=== PATIENT | male | born 1995 | race Caucasian/White ===

== ENCOUNTER 2019-04-20 11:51 | Observation (INO) ==
[2019-04-20] MEDS ORDERED: MoRPHine SULFATE 4 MG/ML 1 ML CARP\\VIAL IV STA (12:09)
[2019-04-20] MEDS ORDERED: ONDANSETRON INJ 2 MG/ML 2 ML VIAL IV STA (12:09)
[2019-04-20] MEDS ORDERED: SODIUM CHLORIDE 0.9% 1000ML 1,000 ML IV SCH (12:15)
[2019-04-20 12:25] LABS: Basophils # (auto) 0.02 K/uL (0-0.2); Basophils % (auto) 0.1 %; Hematocrit (blood only) 41.3 % (42-52); Hemoglobin 15.3 g/dL (14.0-18.0); Immature Granulocytes # (auto) 0.04 K/uL (0.00-0.02); Immature Granulocytes % (auto) 0.3 %; Lymphocytes # (auto) 0.62 K/uL (1.2-3.4); Lymphocytes % (auto) 4.4 %; Mean Corpuscular Volume 84.5 fL (80-100); Mean Platelet Volume 9.5 fL (7.4-10.4); Monocytes # (auto) 0.66 K/uL (0.11-0.59); Monocytes % (auto) 4.7 %; Neutrophils # (auto) 12.83 K/uL (1.4-6.5); Neutrophils % (auto) 90.5 %; Platelet Count 217 K/uL (130-400); RDW Coefficient of Variation 11.9 % (11.5-14.5); RDW Standard Deviation 36.5 fL (36.4-46.3); Red Blood Count 4.89 M/uL (4.7-6.1); White Blood Count 14.17 K/uL (4.8-10.8)
[2019-04-20 12:41] LABS: Albumin Level 4.3 gm/dl (3.4-5.0); BUN Creatinine Ratio 17.2 (10-20); Calcium 9.5 mg/dl (8.5-10.1); Creatinine Clr Calc Pharmacy 120.1 ml/min; Est GFR (African American) 111.1; Est GFR (Non-African American) 95.8
[2019-04-20 12:44] LABS: Albumin Globulin Ratio 1.2 (0.9-2); Bilirubin,Total 0.5 mg/dl (0.2-1); Globulin 3.6 gm/dl (2.5-4.0); Total Protein 7.9 gm/dl (6.4-8.2)
[2019-04-20 12:50] LABS: Appearance Urine Turbid (Clear); Bacteria Urine Automated Negative (Negative); Bilirubin Urine Negative (Negative); Blood Urine Trace (Negative); Color Urine Yellow; Epithelial Cell Urine Auto 0-5 /lpf (0-5); Glucose Urine UA Negative (Negative); Ketones Urine Trace (Negative); Leukocyte Esterase Urine Negative (Negative); Nitrite Urine Negative (Negative); Protein Urine Trace (Negative); Specific Gravity Urine 1.032 (1.000-1.030); Urobilinogen Urine Negative (Negative); WBC Urine Automated 0 /hpf (0-5)
[2019-04-20] MEDS ORDERED: IOVERSOL 100ml IV PRN (14:48)
--- NOTE | 2019-04-20 15:05 | CT Scan Report ---
CT abd pelvis oral and IV con CLINICAL HISTORY: Right lower quadrant abdominal pain COMPARISON STUDY: None. TECHNIQUE: The patient was scanned finding administration of dilute oral contrast, and in a dynamic h elical fashion during intravenous administration of 93 cc of Optiray 320. A dose lowering technique was utilized adhering to the principles of ALARA. CT DOSE: 397.64 mGy.cm FINDINGS: Lower chest: The heart is normal in size and configuration, without pericardial effusion. The lung ba ses and pleural spaces are clear. Liver: The contrast-enhanced liver is normal in size, contour, and attenuation. There is no intrahepa tic biliary ductal dilatation. The hepatic veins and portal veins are patent. Gallbladder: Unremarkable. Spleen: Normal in size and attenuation. Pancreas: Unremarkable. Adrenal glands: Unremarkable. Kidneys: There is an 18 mm left renal cyst. There is no hydronephrosis. Bowel: There are no transition zones indicate bowel obstruction. There are no findings to indicate ac [place] diverticulitis. There is a mildly dilated fluid-filled appendix which is not opacified with contr ast. The appendix measures 9 mm in maximal diameter. There is very subtle periappendiceal edema near the appendiceal base. In the setting of right lower quadrant abdominal pain, the findings are suggest gwen of an early acute appendicitis. Peritoneum: There is a small amount of free pelvic fluid. No free air is visualized. Vasculature: The abdominal aorta is normal in course and caliber. Adenopathy: None. Pelvic viscera: The bladder, and pelvic viscera are unremarkable. Skeletal structures: No destructive osseous lesions are seen. IMPRESSION: 1. No evidence of bowel obstruction. No evidence of free air 2. Mildly dilated fluid-filled appendix which is not opacified with contrast. In the setting of right lower quadrant abdominal pain, the findings are suggestive of an early acute appendicitis. Clinical correlation is advocated Electronically signed by: Zack Tim M.D. 04/20/2019 3:04 PM
[2019-04-20] MEDS ORDERED: cefOXitin 2,000 MG/60 ML BAG IV STA (15:16)
[2019-04-20] MEDS ORDERED: BUPIVACAINE 0.5 % 5 MG/1 ML MPF 30ML VIAL ONE (17:10)
[2019-04-20] MEDS ORDERED: LIDOCAINE HCL 1% 20 ML VIAL ONE (17:10)
[2019-04-20] MEDS ORDERED: BACITRACIN OINT 15 GM TUBE ONE (17:10)
--- NOTE | 2019-04-20 17:12 | Surgery Consultation ---
Date of Consultation April 20, 2019 Assessment & Plan (1) Acute appendicitis: pt is a 23 year-old male who presents to Er with ond day history RLQ pain, CT scan dx acute appendicitis, IMP: acute appendicitis Plan, I recommend to do laparoscopic appendectomy, possible open . D/W benefits, risks and alternatives of the surgery, the risks - infection, bleeding, injury bowel, abscess, pt understood, he agrees with the surgery, I answered all questions, History of Present Illness History of Present Illness CC : RLQ pain HPI: pt is a 23 year-old male who presents to ER with one day history RLQ pain, with nausea, no vomiting, the pain is located at RLQ, pt denies fever, no diarrhea, pt had CT scan at ER Dx acute appendicitis, Allergies Allergy/AdvReac Type Severity Reaction Status Date / Time No Known Allergies Allergy Unverified 04/20/19 13:13 Home Medications Home Medications Medication Instructions Recorded Confirmed Type acetaminophen [Tylenol Extra 500 mg PO Q6H PRN 04/20/19 04/20/19 History Strength] Patient History Medical History Acute appendicitis (Acute) No pertinent family history No pertinent past medical history Surgical History No pertinent past surgical history Social History Preferred Language: Kazakh Communication Ability: Effective Visual Impairment: No Limitations Hearing Ability: Normal System Support Analyst Required: No Beliefs That Will Affect Care: Christian Christian Beliefs: Mormonism Current Living Situation: Parent and Family Other Information That Helps Us Care for You: No Feels Safe at Home: Yes Safety Concerns: Feels Safe At This Time Smoking Status: Never smoker Do You Dip or Chew Tobacco: No Hx Alcohol Use: Yes Hx Substance Use: No Review of Systems Review of Systems: All systems reviewed & are unremarkable except as noted in HPI & below Constitutional: as per Subjective / HPI Ear, Nose, Mouth, Throat: as per Subjective / HPI Respiratory: as per Subjective / HPI Cardiovascular: as per Subjective / HPI Gastrointestinal: as per Subjective / HPI Genitourinary: + as per Subjective / HPI Integumentary: as per Subjective / HPI Neurologic: as per Subjective / HPI Psychiatric: as per Subjective / HPI Endocrine: as per Subjective / HPI Hematologic / Lymphatic: as per Subjective / HPI Physical Exam Constitutional: WD/WN, vitals as above well developed and well nourished ENMT: external ear and nose normal, oropharynx normal Neck: trachea midline, no thyromegaly Respiratory: normal respiratory effort, lungs clear to auscultation normal respiratory effort Cardiovascular: RRR, no murmur, no edema Rate/Rhythm: regular rate and regular rhythm Gastrointestinal (Abdomen): soft, tenderness at RLQ, no rebound pain, BS + Musculoskeletal: no cyanosis or clubbing, extremities motor strength 5/5 Skin: no rashes, warm and dry Neurologic: patellar DTR's 2+ bilat, sensation intact Psychiatric: A+Ox3, euthymic affect Orientation: alert and oriented x 3 Lymphatic: no cervical or axillary lymphadenopathy Results & Data Vital Signs (Past 12 Hours) Vital Signs Temp Pulse Pulse Resp BP Pulse Ox 04/20/19 16:15 37.1 C 93 H 20 153/81 H 99 04/20/19 15:21 37.0 C 83 20 161/80 H 99 04/20/19 14:16 78 16 130/62 100 04/20/19 13:00 64 17 158/87 H 99 04/20/19 12:35 100 04/20/19 11:58 36.8 C 67 18 99 Laboratory Results Abnormal lab results 04/20/19 04/20/19 04/20/19 Range/Units 12:15 12:15 12:25 WBC 14.17 H (4.8-10.8) K/uL Hct 41.3 L (42-52) % MCHC 37.0 H (32-36) g/dL Immature Gran # (Auto) 0.04 H (0.00-0.02) K/uL Neut # (Auto) 12.83 H (1.4-6.5) K/uL Lymph # (Auto) 0.62 L (1.2-3.4) K/uL [place] # (Auto) 0.66 H (0.11-0.59) K/uL BUN 19 H (7-18) mg/dl Glucose 129 H (70-99) mg/dl Lipase 63 L (73-393) U/L Urine Appearance Turbid A (Clear) Ur Specific [place] 1.032 H (1.000-1.030) Urine Protein Trace H (Negative) Urine Ketones Trace H (Negative) Urine Blood Trace H (Negative) Urine RBC (Auto) 5-10 H (0-4) /hpf Diagnostic Findings CT abd pelvis oral and IV con CLINICAL HISTORY: Right lower quadrant abdominal pain COMPARISON STUDY: None. TECHNIQUE: The patient was scanned finding administration of dilute oral contrast, and in a dynamic helical fashion during intravenous administration of 93 cc of Optiray 320. A dose lowering technique was utilized adhering to the principles of ALARA. CT DOSE: 397.64 mGy.cm FINDINGS: Lower chest: The heart is normal in size and configuration, without pericardial effusion. The lung bases and pleural spaces are clear. Liver: The contrast-enhanced liver is normal in size, contour, and attenuation. There is no intrahepatic biliary ductal dilatation. The hepatic veins and portal veins are patent. Gallbladder: Unremarkable. Spleen: Normal in size and attenuation. Pancreas: Unremarkable. Adrenal glands: Unremarkable. Kidneys: There is an 18 mm left renal cyst. There is no hydronephrosis. Bowel: There are no transition zones indicate bowel obstruction. There are no findings to indicate acute diverticulitis. There is a mildly dilated fluid- filled appendix which is not opacified with contrast. The appendix measures 9 mm in maximal diameter. There is very subtle periappendiceal edema near the appendiceal base. In the setting of right lower quadrant abdominal pain, the findings are suggestive of an early acute appendicitis. Peritoneum: There is a small amount of free pelvic fluid. No free air is visualized. Vasculature: The abdominal aorta is normal in course and caliber. Adenopathy: None. Pelvic viscera: The bladder, and pelvic viscera are unremarkable. Skeletal structures: No destructive osseous lesions are seen. IMPRESSION: 1. No evidence of bowel obstruction. No evidence of free air 2. Mildly dilated fluid-filled appendix which is not opacified with contrast. In the setting of right lower quadrant abdominal pain, the findings are suggestive of an early acute appendicitis. Clinical correlation is advocated (1) Acute appendicitis Acute appendicitis type: unspecified acute appendicitis type Qualified Code(s): K35.80 - Unspecified acute appendicitis
--- NOTE | 2019-04-20 17:16 | History & Physical Bridge Note ---
Date of Service April 20, 2019 History & Physical Bridge Note I have examined the patient, reviewed the History & Physical and in the interval since the performance of the History & Physical I have noted the following changes of clinical significance: no changes noted
--- NOTE | 2019-04-20 17:18 | Emergency Department Note ---
Entered by Marian Buitrago acting as a scribe for Adiel Dick DO History of Present Illness General Chief complaint: Abdominal Pain Stated complaint: APPENDICITIS,ABD PAIN Source: patient Mode of arrival: ambulatory Limitations: no limitations History of Present Illness Onset (ago): day(s) (last night. ) Location: abdomen Pain Consistency: + other (worsening) Maximum Pain Intensity: 8 Exacerbated By: + movement and + other (pressure) Associated symptoms: + nausea/vomiting and + other (The patient denies diarrhea and urinary symptoms. ) The patient is a 23 year old male who presents to the ED with complaints of worsening right lower abdominal pain that onset last night. He states that he was referred by [facility]. The patient complains of vomiting 5 times, nausea, and fever of 101 degrees. He notes that his abdominal pain is exacerbated with m ovement and pressure. The patient denies diarrhea and urinary symptoms. Pain is worsened with palpation as well. No other exacerbating or remitting factors. He has no other medical problems. Home Medications Home Medications Medication Instructions Recorded Confirmed Type acetaminophen [Tylenol Extra 500 mg PO Q6H PRN 04/20/19 04/20/19 History Strength] Allergies Allergy/AdvReac Type Severity Reaction Status Date / Time No Known Allergies Allergy Unverified 04/20/19 13:13 Past Med/Surg History Medical History Acute appendicitis (Acute) No pertinent family history No pertinent past medical history Surgical History No pertinent past surgical history Social History Preferred Language: Albanian Communication Ability: Effective Visual Impairment: No Limitations Hearing Ability: Normal Recruiting Intern Required: No Beliefs That Will Affect Care: Christian Christian Beliefs: Buddhist Current Living Situation: Parent and Family Other Information That Helps Us Care for You: No Feels Safe at Home: Yes Safety Concerns: Feels Safe At This Time Smoking Status: Never smoker Do You Dip or Chew Tobacco: No Hx Alcohol Use: Yes Hx Substance Use: No Review of Systems See HPI for pertinent positives & negatives. and A total of 10 systems reviewed and were otherwise negative Physical Exam Vital Signs Vital Signs - 24 hr 04/20/19 11:58 04/20/19 12:35 04/20/19 13:00 Temperature 36.8 C Temperature Source Oral Sepsis Recent Fever Within 48 Hours Yes Sepsis New/Unexplained Change in Mental Status No Sepsis Action Taken by Nursing No Action Required Pulse Rate 67 Pulse Rate [Finger] 64 Pulse Rhythm [Finger] Pulse Strength Normal Pulse Strength [Finger] Respiratory Rate 18 17 Respiratory Effort / Characteristics Non-Labored Non-Labored Respiratory Depth Normal Normal Respiratory Pattern Regular Blood Pressure Blood Pressure [Right Arm] 158/87 H Blood Pressure Mean [Right Arm] 110 Blood Pressure Position Sitting Pulse Oximetry 99 100 99 Oxygen Delivery Method Room Air Room Air Room Air 04/20/19 14:16 04/20/19 15:21 04/20/19 15:44 Temperature 37.0 C Temperature Source Oral Sepsis Recent Fever Within 48 Hours Sepsis New/Unexplained Change in Mental Status Sepsis Action Taken by Nursing Pulse Rate Pulse Rate [Finger] 78 83 Pulse Rhythm [Finger] Regular Pulse Strength Pulse Strength [Finger] Normal Respiratory Rate 16 20 Respiratory Effort / Characteristics Non-Labored Spontaneous Respiratory Depth Normal Respiratory Pattern Regular Blood Pressure Blood Pressure [Right Arm] 130/62 161/80 H Blood Pressure Mean [Right Arm] 84 107 Blood Pressure Position Pulse Oximetry 100 99 Oxygen Delivery Method Room Air Room Air Room Air 04/20/19 16:15 04/20/19 17:10 Temperature 37.1 C 37.2 C Temperature Source Oral Oral Sepsis Recent Fever Within 48 Hours Sepsis New/Unexplained Change in Mental Status Sepsis Action Taken by Nursing Pulse Rate 90 Pulse Rate [Finger] 93 H Pulse Rhythm [Finger] Pulse Strength Pulse Strength [Finger] Respiratory Rate 20 20 Respiratory Effort / Characteristics Respiratory Depth Respiratory Pattern Blood Pressure 150/79 H Blood Pressure [Right Arm] 153/81 H Blood Pressure Mean [Right Arm] 105 Blood Pressure Position Pulse Oximetry 99 100 Oxygen Delivery Method Room Air Room Air GENERAL: Sitting up in bed. Alert, well appearing, well nourished, no distress, non-toxic EYE EXAM: Normal conjunctiva. OROPHARYNX: no exudate, no erythema, lips, buccal mucosa, and tongue normal and mucous membranes are moist NECK: supple, no nuchal rigidity, no adenopathy, non-tender LUNGS: Clear to auscultation. Normal chest wall mechanics HEART: no murmurs, S1 normal and S2 normal ABDOMEN: abdomen soft, tender to palpation of the right lower quadrant, normo- active bowel sounds, no masses, no rebound or guarding. BACK: Back is symmetrical on inspection and there is no deformity, no midline tenderness, no CVA tenderness. SKIN: no rashes and no bruising UPPER EXTREMITIES: upper extremities are grossly normal. LOWER EXTREMITIES: No pitting edema. NEURO EXAM: Normal sensorium, cranial nerves II-XII grossly intact, normal speech, no gross weakness of arms, no gross weakness of legs. Course 1205: Past medical records reviewed. The patient was evaluated in room B8. A complete history and physical examination was performed. 1424: I have re-evaluated the patient. 1513: I paged surgery. 1517: I reviewed the patient's case with Dr. Sascha Horner. 1525: I have updated the patient. Consultations Consultation #1: 1517: I reviewed the patient's case with Dr. Sascha bella. Time: 15:17 Administered Medications Ioversol (Optiray 320 100ml) 93 ml IV ONCE PRN PRN Reason: Interaction Checking Stop: 04/24/19 14:47 Last Admin: 04/20/19 14:49 Dose: 93 ml Documented by: [id number] Discontinued Medications Sodium Chloride (Nss 1000ml) 1,000 mls @ 999 mls/hr IV .Q1H1M TAVON Stop: 04/20/19 13:15 Last Infusion: 04/20/19 13:28 Dose: 0 mls/hr Documented by: [id number] Admin: 04/20/19 12:27 Dose: 999 mls/hr Documented by: [id number] Cefoxitin Sodium (Mefoxin) 2,000 mg in 60 mls @ 100 mls/hr IV NOW STA Stop: 04/20/19 15:51 Last Infusion: 04/20/19 16:04 Dose: 0 mls/hr Documented by: [id number] Admin: 04/20/19 15:31 Dose: 100 mls/hr Documented by: [id number] Morphine Sulfate (Morphine Sulfate) 4 mg IV NOW STA Stop: 04/20/19 12:10 Last Admin: 04/20/19 12:35 Dose: 4 mg Documented by: [id number] Ondansetron HCl (Zofran) 4 mg IV NOW STA Stop: 04/20/19 12:10 Last Admin: 04/20/19 12:35 Dose: 4 mg Documented by: [id number] Medical Decision Making Differential Diagnosis Differential diagnoses: Appendicitis, diverticulitis, PUD, biliary pathology, UTI, pancreatitis, obstruction, mesenteric ischemia, aortic pathology, infections, inflammatory bowel disease, renal colic, as well as others were entertained. Medical Records Attestation: I reviewed the patient's medical records. Home Medications Current Medication List: was personally reviewed by me Laboratory Data Attestation: I reviewed the patient's lab results. Result diagrams: 04/20/19 12:15 04/20/19 12:15 Lab Results 04/20/19 04/20/19 04/20/19 Range/Units 12:15 12:15 12:25 WBC 14.17 H (4.8-10.8) K/uL RBC 4.89 (4.7-6.1) M/uL Hgb 15.3 (14.0-18.0) g/dL Hct 41.3 L (42-52) % MCV 84.5 (80-100) fL MCH 31.3 (25-34) pg MCHC 37.0 H (32-36) g/dL RDW Std Deviation 36.5 (36.4-46.3) fL RDW Coeff of Vitaliy 11.9 (11.5-14.5) % Plt Count 217 (130-400) K/uL MPV 9.5 (7.4-10.4) fL Immature Gran % (Auto) 0.3 % Neut % (Auto) 90.5 % Lymph % (Auto) 4.4 % [place] % (Auto) 4.7 % Eos % (Auto) 0.0 % Baso % (Auto) 0.1 % Immature Gran # (Auto) 0.04 H (0.00-0.02) K/uL Neut # (Auto) 12.83 H (1.4-6.5) K/uL Lymph # (Auto) 0.62 L (1.2-3.4) K/uL [place] # (Auto) 0.66 H (0.11-0.59) K/uL Eos # (Auto) 0.00 (0-0.5) K/uL Baso # (Auto) 0.02 (0-0.2) K/uL Sodium 139 (136-145) mmol/L Potassium 4.0 (3.5-5.1) mmol/L Chloride 104 (98-107) mmol/L Carbon Dioxide 29 (21-32) mmol/L Anion Gap 5.0 (3-11) BUN 19 H (7-18) mg/dl Creatinine 1.09 (0.6-1.4) mg/dl Est Cr Clr Drug Dosing 120.1 ml/min Est GFR ( Amer) 111.1 Est GFR (Non-Af Amer) 95.8 BUN/Creatinine Ratio 17.2 (10-20) Glucose 129 H (70-99) mg/dl Calcium 9.5 (8.5-10.1) mg/dl Total Bilirubin 0.5 (0.2-1) mg/dl AST 22 (15-37) U/L ALT 34 (12-78) U/L Alkaline Phosphatase 84 (45-117) U/L Total Protein 7.9 (6.4-8.2) gm/dl Albumin 4.3 (3.4-5.0) gm/dl Globulin 3.6 (2.5-4.0) gm/dl Albumin/Globulin Ratio 1.2 (0.9-2) Lipase 63 L (73-393) U/L Urine Color Yellow Urine Appearance Turbid A (Clear) Urine pH 7.0 (4.5-7.5) Ur Specific [place] 1.032 H (1.000-1.030) Urine Protein Trace H (Negative) Urine Glucose (UA) Negative (Negative) Urine Ketones Trace H (Negative) Urine Blood Trace H (Negative) Urine Nitrite Negative (Negative) Urine Bilirubin Negative (Negative) Urine Urobilinogen Negative (Negative) Ur Leukocyte Esterase Negative (Negative) Urine WBC (Auto) 0 (0-5) /hpf Urine RBC (Auto) 5-10 H (0-4) /hpf U Hyaline Cast (Auto) 1-5 (0-5) /lpf U Epithel Cells (Auto) 0-5 (0-5) /lpf Urine Bacteria (Auto) Negative (Negative) Imaging Data Radiologist's Impression: Radiology results as stated below per my review and the radiologist's interpretation:' CT abd pelvis oral and IV con CLINICAL HISTORY: Right lower quadrant abdominal pain COMPARISON STUDY: None. TECHNIQUE: The patient was scanned finding administration of dilute oral contrast, and in a dynamic helical fashion during intravenous administration of 93 cc of Optiray 320. A dose lowering technique was utilized adhering to the principles of ALARA. CT DOSE: 397.64 mGy.cm FINDINGS: Lower chest: The heart is normal in size and configuration, without pericardial effusion. The lung bases and pleural spaces are clear. Liver: The contrast-enhanced liver is normal in size, contour, and attenuation. There is no intrahepatic biliary ductal dilatation. The hepatic veins and portal veins are patent. Gallbladder: Unremarkable. Spleen: Normal in size and attenuation. Pancreas: Unremarkable. Adrenal glands: Unremarkable. Kidneys: There is an 18 mm left renal cyst. There is no hydronephrosis. Bowel: There are no transition zones indicate bowel obstruction. There are no findings to indicate acute diverticulitis. There is a mildly dilated fluid- filled appendix which is not opacified with contrast. The appendix measures 9 mm in maximal diameter. There is very subtle periappendiceal edema near the appendiceal base. In the setting of right lower quadrant abdominal pain, the findings are suggestive of an early acute appendicitis. Peritoneum: There is a small amount of free pelvic fluid. No free air is visualized. Vasculature: The abdominal aorta is normal in course and caliber. Adenopathy: None. Pelvic viscera: The bladder, and pelvic viscera are unremarkable. Skeletal structures: No destructive osseous lesions are seen. IMPRESSION: 1. No evidence of bowel obstruction. No evidence of free air 2. Mildly dilated fluid-filled appendix which is not opacified with contrast. In the setting of right lower quadrant abdominal pain, the findings are suggestive of an early acute appendicitis. Clinical correlation is advocated Electronically signed by: Zack Tim M.D. 04/20/2019 3:04 PM Dictated: 04/20/19 1450 Transcribed: 04/20/19 1500 Blood Pressure Blood Pressure Findings: Elevated blood pressure Blood Pressure Disposition: further management by hospitalist ARI Katz Patient is a 23-year-old male who presents the ER for right lower quadrant abdominal pain which started last night. Its associated with nausea vomiting. He was seen at [facility] and referred him. Labs were obtained and showed a leukocytosis of 14,000. No significant anemia. He did have a fever of 101 prior to arrival. BMP was unremarkable along with LFTs bilirubin and lipase. UA without signs of infection but did have a mild amount of hematuria. This will need to be followed up on. CT confirms appendicitis. Patient was given cefoxitin 2 g IV along with IV fluids and pain medications. Discussed with general surgery patient was admitted for appendicitis. Impression & Plan Acute appendicitis, Hematuria Discharge Plan Visit Data Chief Complaint: Abdominal Pain Stated Complaint: APPENDICITIS,ABD PAIN ED Provider: Adiel Dick Discharge Problem: Acute appendicitis, Hematuria Patient Disposition: Being Evaluated by Surgeon Discharge Instructions Interventions: ED Discharge Assessment Last Done: 04/20/19 17:10 Forms Stand Alone [facility]: [facility] Prescriptions Prescriptions: No Action acetaminophen [Tylenol Extra Strength] 500 mg Tablet 500 mg PO Q6H PRN (Reason: Pain) RF: 0 Referrals Referrals: PCP,NO [Primary Care Provider] - The scribe's documentation has been prepared under my direction and personally reviewed by me in its entirety. I confirm that the note above accurately reflects all work, treatment, procedures, and medical decision making performed by me.
--- NOTE | 2019-04-20 17:26 | Anesthesiology Consultation ---
Date of Service April 20, 2019 Assessment & Plan (1) Encounter for pre-operative examination: Chart Review Chart Review: Acceptable Risk for Surgery and Patient NOT seen in Pre Admission Testing Consults Requested none Proposed Anesthesia Risk / Benefits Reviewed With: PT / POA / Parent / Guardian, Accepts Plan and Informed Consent Obtained History Surgery Operation Date: 04/20/19 11:30 Proposed Procedures p Laparoscopic Appendectomy - Patricia Caicedo MD Height/Weight Height: 6 ft 1 in Weight: 83.7 kg Allergies Allergy/AdvReac Type Severity Reaction Status Date / Time No Known Allergies Allergy Unverified 04/20/19 13:13 Medications Home Medications Medication Instructions Recorded Confirmed Last Taken acetaminophen [Tylenol Extra 500 mg PO Q6H PRN 04/20/19 04/20/19 04/20/19 10:30 Strength] 500mg Active Medications Generic Name Dose Route Start Last Admin Trade Name Freq PRN Reason Stop Dose Admin Ioversol 93 ml 04/20/19 14:48 04/20/19 14:49 Optiray 320 100ml IV 04/24/19 14:47 93 ml ONCE PRN Administration Interaction Checking NPO Date Last Intake of Fluids: 04/20/19 Time Last Intake of Fluids: 14:30 Date Last Intake of Solids: 04/20/19 Time Last Intake of Solids: 21:00 Past Medical History Medical History Acute appendicitis (Acute) No pertinent family history No pertinent past medical history Exercise / Class Metabolic Activity II 4-5 Yardwork/Stairs/Walk up hill Past Family History Family History Other No pertinent family history Past Surgical History Surgical History No pertinent past surgical history Past Anesthesia History No Hx of Anesthesia Complications History of PONV No Hx of PONV and No Hx of Motion Sickness Social History Smoking Status: Never smoker Do You Dip or Chew Tobacco: No Hx Alcohol Use: Yes alcohol intake frequency: a few times a week Alcohol Intake Frequency Comment: 2-3 drink on 2-3 days/week Hx Substance Use: No Physical Exam Vital Signs Last Vital Signs Temp 37.2 C 04/20/19 17:10 Pulse 90 06/20/19 17:10 Resp 20 04/20/19 17:10 BP 150/79 H 04/20/19 17:10 Pulse Ox 100 04/20/19 17:10 ENMT Mouth: no dentition abnormality Thyromental Distance: > or= 3.5 Finger Breadths Mallampati Class: II Neck normal visual inspection Respiratory normal respiratory effort Auscultation: lungs clear to auscultation bilaterally Cardiovascular Rate/Rhythm: regular rate and regular rhythm Psychiatric Orientation: alert and oriented x 3 Testing Laboratory Results 04/20/19 12:15 04/20/19 12:15 Urine Color Yellow 04/20/19 12:25 Urine Appearance Turbid (Clear) A 04/20/19 12:25 Urine pH 7.0 (4.5-7.5) 04/20/19 12:25 Ur Specific [place] 1.032 (1.000-1.030) H 04/20/19 12:25 Urine Protein Trace (Negative) H 04/20/19 12:25 Urine Glucose (UA) Negative (Negative) 04/20/19 12:25 Urine Ketones Trace (Negative) H 04/20/19 12:25 Urine Nitrite Negative (Negative) 04/20/19 12:25 Ur Leukocyte Esterase Negative (Negative) 04/20/19 12:25 Urine WBC (Auto) 0 /hpf (0-5) 04/20/19 12:25 Urine RBC (Auto) 5-10 /hpf (0-4) H 04/20/19 12:25 U Hyaline Cast (Auto) 1-5 /lpf (0-5) 04/20/19 12:25 U Epithel Cells (Auto) 0-5 /lpf (0-5) 04/20/19 12:25 Urine Bacteria (Auto) Negative (Negative) 04/20/19 12:25
[2019-04-20] MEDS ORDERED: ONDANSETRON INJ 2 MG/ML 2 ML VIAL ONE (17:49)
[2019-04-20] MEDS ORDERED: fentaNYL citrate 100 MCG/2 ML VIAL ONE ×2 (17:49→17:50)
[2019-04-20] MEDS ORDERED: GLYCOPYRROLATE 0.2 MG/ML VIAL ONE ×2 (17:49→18:23)
[2019-04-20] MEDS ORDERED: PROPOFOL IV EMULSION 10 MG/ML 20 ML VIAL IV ONE (17:49)
[2019-04-20] MEDS ORDERED: NEOSTIGMINE METHYLSULFATE 5 MG/5 ML SYR ONE (17:49)
[2019-04-20] MEDS ORDERED: DEXAMETHASONE SOD INJ 4 MG/ML VIAL ONE (17:49)
[2019-04-20] MEDS ORDERED: LIDOCAINE HCL 2% 2 ML VIAL/AMP(20MG/ML) INFIL ONE (17:49)
[2019-04-20] MEDS ORDERED: MIDAZOLAM HCL 1 MG/ML 2ML VIAL ONE (17:50)
[2019-04-20] MEDS ORDERED: LARYING-O-JET KIT (LTA) ONE (18:23)
[2019-04-20] MEDS ORDERED: ROCURONIUM BROMIDE 10 MG/ML 5 ML VIAL ONE (18:23)
[2019-04-20] MEDS ORDERED: SUCCINYLCHOLINE CHLORIDE 20 MG/ML 10 ML VIAL ONE (18:23)
[2019-04-20] MEDS ORDERED: HYDROmorphone INJ 1 MG/ML SYRINGE IV PRN (18:33)
[2019-04-20] MEDS ORDERED: ePHEDrine sulfate 50 MG/ML AMP IV PRN (18:33)
[2019-04-20] MEDS ORDERED: fentaNYL citrate 100 MCG/2 ML VIAL IV PRN (18:33)
[2019-04-20] MEDS ORDERED: PHENYLEPHRINE 100MCG/ML 5ML SYR IV PRN (18:33)
[2019-04-20] MEDS ORDERED: LABETALOL HCL IV 5 MG/ML 20ML IV PRN (18:33)
[2019-04-20] MEDS ORDERED: ATROPINE SULFATE 0.1 MG/ML 10ML SYR IV PRN (18:33)
[2019-04-20] MEDS ORDERED: MEPERIDINE HCL 25 MG/ML CARP IV PRN (18:33)
[2019-04-20] MEDS ORDERED: ONDANSETRON INJ 2 MG/ML 2 ML VIAL IV PRN ×2 (18:33→19:53)
--- NOTE | 2019-04-20 18:47 | Post Operative Brief Note ---
Immediate Post Op Note v1 Date of Surgery April 20, 2019 Pre & Post Diagnosis Operation Date: 04/20/19 11:30 Pre-Op Diagnosis: Acute Appendicitis Post-Op Diagnosis: Acute Appendicitis Procedure Operation Date: 04/20/19 11:30 Actual Procedures p Laparoscopic Appendectomy - Patricia Caicedo MD Surgeon Patricia Caicedo MD [employer] Associate surgical physician assistant Estimated Blood Loss 5 Findings Consistent with Post-Op Diagnosis acute appendicitis Fluids 1300ml Specimens appendix Anesthesia Type General Complications none Disposition Accompanied Patient To Recovery: Yes Disposition: Recovery Room Overlapping Procedure I was immediately available: during the entire case.
[2019-04-20] MEDS ORDERED: OXYCODONE/ACETAMINOPHEN 5mg/325mg TAB PO PRN (18:54)
[2019-04-20] MEDS ORDERED: HYDROmorphone INJ 0.5 MG/0.5 ML SYR IV PRN (18:54)
--- NOTE | 2019-04-20 19:32 | Anesthesiology Progress Note ---
Date of Service April 20, 2019 Anesthesia Post Procedure Vital Signs Vital Signs: Temp Pulse Pulse Pulse Resp BP BP 04/20/19 19:25 74 17 137/64 04/20/19 19:15 73 19 148/69 H 04/20/19 19:05 70 16 143/67 H 04/20/19 18:58 36.9 C 71 17 144/74 H 04/20/19 17:24 38.5 C H 109 H 20 139/68 04/20/19 17:10 37.2 C 90 20 150/79 H 04/20/19 16:15 37.1 C 93 H 20 153/81 H 04/20/19 15:21 37.0 C 83 20 161/80 H 04/20/19 14:16 78 16 130/62 04/20/19 13:00 64 17 158/87 H 04/20/19 12:35 04/20/19 11:58 36.8 C 67 18 Pulse Ox 04/20/19 19:25 96 04/20/19 19:15 100 04/20/19 19:05 100 04/20/19 18:58 99 04/20/19 17:24 97 04/20/19 17:10 100 04/20/19 16:15 99 04/20/19 15:21 99 04/20/19 14:16 100 04/20/19 13:00 99 04/20/19 12:35 100 04/20/19 11:58 99 Pain Intensity Right Lower Abdomen: Pain Intensity: 0 Transfer of Care Handoff Completed per policy Notes Mental Status: alert / awake / arousable Patient Amnestic to Procedure: Yes Nausea / Vomiting: adequately controlled Pain: adequately controlled Airway Patency, RR, SpO2: stable & adequate BP & HR: stable & adequate Hydration State: stable & adequate Anesthetic Complications: no major complications apparent and Pt Satisfied with anesthetic care
[2019-04-20] MEDS: LACTATED RINGER'S 1,000 ML IV SCH (21:58)
--- NOTE | 2019-04-21 01:48 | Operative Report ---
DATE OF OPERATION: 04/20/2019 PREOPERATIVE DIAGNOSIS: Acute appendicitis. POSTOPERATIVE DIAGNOSIS: Acute appendicitis. OPERATION: Laparoscopic appendectomy. SURGEON: Patricia Caicedo MD ANESTHESIA: General. ESTIMATED BLOOD LOSS: About 5 mL. FINDINGS: Acute appendicitis. COMPLICATIONS: None. INDICATIONS FOR THE PROCEDURE: This is a 23-year-old gentleman who presented to the Emergency Department with 1 day history of right lower quadrant pain. The patient had a CT scan diagnosis of acute appendicitis. I recommended to do a laparoscopic appendectomy, possible open. I did talk to the patient about the benefits, risks and alternate procedure. I indicated the risks may include but not limited such as bleeding, infection, abscess and injury to the bowel. The patient understands. He signed informed consent and I answered all questions. DETAILS OF PROCEDURE: We brought the patient to the Operating Room and put the patient in the supine position. The patient received sequential compression devices on bilateral legs to prevent deep venous thrombosis. Also, the patient received 2 g cefoxitin I.V. for prophylactic antibiotic. The patient received general anesthesia without difficulty. The abdomen was prepped and draped in routine sterile fashion. After time out, I injected local anesthesia by using 1% lidocaine mixed with 0.5% Marcaine just above umbilicus. Then, I made a small incision just above umbilicus, opened fascia and opened peritoneum under direct vision, put a Zuleyma trocar in, connected to CO2 to create pneumoperitoneum, flow rate at 6 liters per minute, pressure not more than 14 mmHg. Once we got a nice pneumoperitoneum, we put a camera in, looked around the abdomen showed normal finding on the small bowel, large bowel and appendix was enlarged with inflammation on the tip, confirmed diagnosis of acute appendicitis. Then, we put another two 5 mm trocars on the left lower quadrant and then we used a grasper to hold the appendix and used Harmonic to take down appendiceal. I used a 45 mm Endo-MURALI staple transection on the base of the appendix. We checked the staple line intact. No active bleeding. Then, we removed the appendix through the catch bag. Then, we reinserted Zuleyma trocar in, connected to CO2 to create pneumoperitoneum, again looked around the abdomen, no active bleeding. The staple line intact. Then, we removed all trocars under direct vision. No active bleeding from the trocar sites. Pneumoperitoneum was released. I closed the umbilical incision fascial layer by using #1 Vicryl [id number] x2, closed subcutaneous layer by using 2-0 Vicryl interruptedly, closed skin by using 4-0 Vicryl continuous running and closed another two 5 mm trocar sites skin only by using 4-0 Vicryl. Then, we put the dressing on. The patient tolerated the procedure well. All the instrument, needle and sponge count correct x2 at the end of case. The patient was transferred to the Recovery Room in a stable condition. The specimen was sent to Pathology. I attest to the content of the Intraoperative Record and any orders documented therein. Any exception s are noted below.
[2019-04-21 07:37] LABS: Basophils # (auto) 0.01 K/uL (0-0.2); Basophils % (auto) 0.1 %; Hematocrit (blood only) 38.5 % (42-52); Immature Granulocytes # (auto) 0.03 K/uL (0.00-0.02); Immature Granulocytes % (auto) 0.3 %; Lymphocytes # (auto) 0.59 K/uL (1.2-3.4); Lymphocytes % (auto) 5.2 %; Mean Corpuscular Hgb Conc 36.4 g/dL (32-36); Mean Corpuscular Volume 86.3 fL (80-100); Monocytes # (auto) 0.48 K/uL (0.11-0.59); Monocytes % (auto) 4.2 %; Neutrophils # (auto) 10.24 K/uL (1.4-6.5); Neutrophils % (auto) 90.2 %; Platelet Count 192 K/uL (130-400); RDW Coefficient of Variation 12.1 % (11.5-14.5); RDW Standard Deviation 38.1 fL (36.4-46.3); Red Blood Count 4.46 M/uL (4.7-6.1); White Blood Count 11.35 K/uL (4.8-10.8)
--- NOTE | 2019-04-21 07:45 | Surgery Progress Note ---
Date of Service F/U S/P laparoscopic appendectomy, pt is doing fine, no significant abdominal pain, no nausea, no vomiting, he tolerated clear diet, April 21, 2019 Assessment & Plan (1) Acute appendicitis: pt is a 23 year-old male who presents to Er with ond day history RLQ pain, CT scan dx acute appendicitis, IMP: acute appendicitis Plan, I recommend to do laparoscopic appendectomy, possible open . D/W benefits, risks and alternatives of the surgery, the risks - infection, bleeding, injury bowel, abscess, pt understood, he agrees with the surgery, I answered all questions, 04/21/2019 7:44am doing fine, pt wants to go home today, the post-op care instruction was given. F/U 1-2 weeks, Physical Exam Constitutional: WD/WN, vitals as above well developed and well nourished ENMT: external ear and nose normal, oropharynx normal Neck: trachea midline, no thyromegaly Respiratory: normal respiratory effort, lungs clear to auscultation normal respiratory effort Cardiovascular: RRR, no murmur, no edema Rate/Rhythm: regular rate and regular rhythm Gastrointestinal (Abdomen): normal bowel sounds, soft, nontender, no hepatosplenomegaly Inspection/Auscultation: abdomen normal to inspection soft, NT, ND, incision intact, no redness, no drainage, Musculoskeletal: no cyanosis or clubbing, extremities motor strength 5/5 Skin: no rashes, warm and dry Neurologic: patellar DTR's 2+ bilat, sensation intact Psychiatric: A+Ox3, euthymic affect Orientation: alert and oriented x 3 Lymphatic: no cervical or axillary lymphadenopathy Results & Data Vital Signs (Past 12 Hours) Vital Signs Temp Pulse Resp BP Pulse Ox 04/21/19 07:23 36.5 C 59 L 19 113/61 96 04/21/19 03:39 36.7 C 72 18 124/68 98 04/20/19 23:34 36.7 C 89 18 143/74 H 97 04/20/19 22:46 36.6 C 86 16 116/60 95 04/20/19 21:48 36.9 C 99 H 16 133/69 96 04/20/19 20:47 37.2 C 96 H 17 132/61 97 04/20/19 20:17 36.7 C 86 16 126/73 95 04/20/19 19:45 37.1 C 71 18 139/75 98 (1) Acute appendicitis Acute appendicitis type: unspecified acute appendicitis type Qualified Code(s): K35.80 - Unspecified acute appendicitis
[2019-04-21] MEDS: LACTATED RINGER'S 1,000 ML IV SCH (08:55)
--- NOTE | 2019-04-21 10:43 | Anesthesiology Progress Note ---
Date of Service April 21, 2019 Anesthesia Post Procedure Vital Signs Vital Signs: Temp Pulse Pulse Pulse Resp BP BP 04/21/19 09:12 36.5 C 75 59 L 19 113/61 04/21/19 07:30 36.5 C 59 L 19 113/61 04/21/19 07:23 36.5 C 59 L 19 113/61 04/21/19 03:39 36.7 C 72 18 124/68 04/20/19 23:34 36.7 C 89 18 143/74 H 04/20/19 22:46 36.6 C 86 16 116/60 04/20/19 21:48 36.9 C 99 H 16 133/69 04/20/19 20:47 37.2 C 96 H 17 132/61 04/20/19 20:17 36.7 C 86 16 126/73 04/20/19 19:45 37.1 C 71 18 139/75 04/20/19 19:35 37.5 C 75 17 136/66 04/20/19 19:25 74 17 137/64 04/20/19 19:15 73 19 148/69 H 04/20/19 19:05 70 16 143/67 H 04/20/19 18:58 36.9 C 71 17 144/74 H 04/20/19 17:24 38.5 C H 109 H 20 139/68 04/20/19 17:10 37.2 C 90 20 150/79 H 04/20/19 16:15 37.1 C 93 H 20 153/81 H 04/20/19 15:21 37.0 C 83 20 161/80 H 04/20/19 14:16 78 16 130/62 04/20/19 13:00 64 17 158/87 H 04/20/19 12:35 04/20/19 11:58 36.8 C 67 18 Pulse Ox 04/21/19 09:12 96 04/21/19 07:30 96 04/21/19 07:23 96 04/21/19 03:39 98 04/20/19 23:34 97 04/20/19 22:46 95 04/20/19 21:48 96 04/20/19 20:47 97 04/20/19 20:17 95 04/20/19 19:45 98 04/20/19 19:35 96 04/20/19 19:25 96 06/20/19 19:15 100 04/20/19 19:05 100 04/20/19 18:58 99 04/20/19 17:24 97 04/20/19 17:10 100 04/20/19 16:15 99 04/20/19 15:21 99 04/20/19 14:16 100 04/20/19 13:00 99 04/20/19 12:35 100 04/20/19 11:58 99 Pain Intensity Right Lower Abdomen: Pain Intensity: 3 Notes Mental Status: alert / awake / arousable and participated in evaluation Patient Amnestic to Procedure: Yes Nausea / Vomiting: adequately controlled Pain: adequately controlled Airway Patency, RR, SpO2: stable & adequate BP & HR: stable & adequate Hydration State: stable & adequate Anesthetic Complications: no major complications apparent
--- NOTE | 2019-04-22 02:08 | Discharge Summary ---
ADMITTING DIAGNOSIS: Acute appendicitis. DISCHARGE DIAGNOSIS: Acute appendicitis. OPERATION: Laparoscopic appendectomy. SURGEON: Patricia Caicedo MD DETAILS OF DISCHARGE SUMMARY: This is a 23-year-old gentleman who presented to the Emergency Department with right lower quadrant pain. The patient had a CT scan diagnosis of acute appendicitis. We took the patient to the Operating Room. We did a laparoscopic appendectomy and the patient tolerated the procedure well and confirmed diagnosis of acute appendicitis during the operation. The patient was transferred to recovery room and later on transferred to regular floor. The patient is doing fine. He tolerated a clear diet. No nausea. No vomiting. No temperature. PHYSICAL EXAMINATION: VITAL SIGNS: Temperature is 36.5, heart rate 59, respiratory rate 19, blood pressure 113/61 and O2 saturation 96% on room air. GENERAL: The patient is alert, awake and oriented x3. HEENT: With normal limitation. NEUROLOGIC: Intact. NECK: No JVD. CHEST: Bilateral lung sounds clear. HEART: Normal S1, S2. No murmurs. ABDOMEN: Soft. No tenderness. All incisions intact. No redness. No drainage. Bowel sounds positive. EXTREMITIES: No edema. The patient wanted to go home today. I gave the patient postoperative care instructions and the patient agreed to go home today.
== END 2019-04-21 10:31 | disposition home or self-care (01) ==
LOC: ED 11:51 → OR 17:10 → 3W 17:10
DX: K35.80 Unspecified acute appendicitis